=== PATIENT | male | born 1935 | race Caucasian/White ===

== ENCOUNTER 2020-12-18 08:59 | Emergency (ER) | payer MEDICARE ==
--- NOTE | 2020-12-18 10:05 | EDM.PDOC ---
ED HPI GENERAL MEDICAL PROBLEM - General Chief Complaint: Genitourinary Problem Stated Complaint: CATHERDER PLUGGED Time Seen by Provider: 12/18/20 09:57 Source of Information: Reports: Patient History Limitations: Reports: No Limitations - History of Present Illness INITIAL COMMENTS - FREE TEXT/NARRATIVE: This is an 85-year-old male with history of BPH and urinary retention requiring Yoon catheter who presents with concerns of an obstructed Yoon. He lives primarily in [place]. He is visiting the area for a . He has had ongoing issues of BPH and urinary retention. He is currently undergoing treatment through a urologist in [place]. Plan for procedure in the next week or 2. Overnight he had loss of urine through his Yoon. He began to develop suprapubic pain. His was unsuccessful in attempts to flush the Yoon so she removed it. He is here in the ED now requesting replacement. He has no other new symptoms. - Related Data Allergies Allergy/AdvReac Type Severity Reaction Status Date / Time No Known Allergies Allergy Verified 12/18/20 09:26 Home Meds: Home Meds Losartan [Cozaar] 100 mg PO BID 12/18/20 [History] Omeprazole 20 mg PO DAILY 12/18/20 [History] Tamsulosin HCl [Flomax] 0.4 mg PO BID 12/18/20 [History] Verapamil [Calan] 120 mg PO DAILY 12/18/20 [History] Past Medical History HEENT History: Reports: Hard of Hearing, Impaired Vision Cardiovascular History: Reports: High Cholesterol, Hypertension Gastrointestinal History: Reports: GERD Genitourinary History: Reports: Prostate Disorder, Retention, Urinary Musculoskeletal History: Reports: Arthritis - Past Surgical History HEENT Surgical History: Reports: Cataract Surgery Male Surgical History: Reports: Circumcision, Other (See Below) Other Male Surgeries/Procedures: hx yoon DC'd this AM Social & Family History - Tobacco Use Tobacco Use Status *Q: Never Tobacco User - Caffeine Use Caffeine Use: Reports: Coffee - Recreational Drug Use Recreational Drug Use: No ED ROS GENERAL - Review of Systems Review Of Systems: See Below Constitutional: Reports: No Symptoms HEENT: Reports: No Symptoms Respiratory: Reports: No Symptoms Cardiovascular: Reports: No Symptoms Endocrine: Reports: No Symptoms GI/Abdominal: Reports: No Symptoms : Reports: Other (Clogged Yoon) Musculoskeletal: Reports: No Symptoms Skin: Reports: No Symptoms Neurological: Reports: No Symptoms Psychiatric: Reports: No Symptoms Hematologic/Lymphatic: Reports: No Symptoms Immunologic: Reports: No Symptoms ED EXAM, RENAL/ - Physical Exam Exam: See Below Exam Limited By: No Limitations General Appearance: Alert, No Apparent Distress Ears: Normal External Exam Nose: Normal Inspection Throat/Mouth: Normal Inspection Head: Atraumatic, Normocephalic Neck: Normal Inspection Respiratory/Chest: No Respiratory Distress Cardiovascular: Regular Rate, Rhythm GI/Abdominal: Soft, Non-Tender (Male) Exam: Other (Yoon catheter is in place draining clear urine) Back Exam: Normal Inspection Extremities: Normal Inspection Neurological: Alert, Oriented Psychiatric: Normal Affect, Normal Mood Skin Exam: Warm, Dry Course - Vital Signs Last Recorded V/S: Last Vital Signs Temp 36.5 C 12/18/20 09:22 Pulse 97 12/18/20 09:22 Resp 18 12/18/20 09:22 BP 151/78 H 12/18/20 09:22 Pulse Ox 96 12/18/20 09:22 - Re-Assessments/Exams Free Text/Narrative Re-Assessment/Exam: 85-year-old male with history of BPH and urinary retention who presents with concerns of Yoon dysfunction. He is having issues with clogging overnight and his removed his Yoon. This is been replaced. It is draining clear urine. He has follow-up planned with his urologist. We have provided him with supplies for Yoon cares. Okay for discharge. 12/18/20 10:07 Departure - Departure Time of Disposition: 10:08 Disposition: Home, Self-Care 01 Clinical Impression: Yoon catheter in place - Discharge Information *PRESCRIPTION DRUG MONITORING PROGRAM REVIEWED*: No *COPY OF PRESCRIPTION DRUG MONITORING REPORT IN PATIENT LOREN: No Instructions: Indwelling Urinary Catheter Care, Adult Referrals: PCP,None [Primary Care Provider] - Sepsis Event Note (ED) - Focused Exam Vital Signs: Vital Signs Temp Pulse Resp BP Pulse Ox 12/18/20 09:22 36.5 C 97 18 151/78 H 96
== END 2020-12-18 10:20 | disposition home or self-care (01) ==
LOC: JP.ED 08:59
DX: Z46.6 Encounter for fitting and adjustment of urinary device (principal); I10 Essential (primary) hypertension; K21.9 Gastro-esophageal reflux disease without esophagitis; M19.90 Unspecified osteoarthritis, unspecified site; N40.1 Benign prostatic hyperplasia with lower urinary tract symptoms; R33.8 Other retention of urine; Z79.899 Other long term (current) drug therapy
CPT/HCPCS: 51702; 99283-25